=== PATIENT | female | born 1995 | race Two or more races ===

== ENCOUNTER 2018-05-13 08:30 | Emergency (ER) | payer OTHER, MEDICAID ==
[~2018-05-13] VITALS: Ht 160 cm; Wt 54.9 kg
--- NOTE | 2018-05-13 08:45 | NUR ---
BIB [facility]- WAS FOUND IN [place] WITH SHEET WRAPPED AROUND NECK. ALSO REPORTS PLANS OF DROWNING HERSELF IN THE [place], AND TAKING MULTIPLE XANAX. NOTED WITH FLAT AFFECT. MD AT BS FOR EVAL. [place] [facility] AND REPORTS THAT PT IS IN THE MIDDLE OF AN ARREST AND THEY HAVE PT'S VALUABLES THAT THEY ARE TAKING IN UNDER THEIR CUSTODY- NOTED LIGHT BLUE HAND BAG/PURSE WITH MULTIPLE MARION INSIDE. VSS. PLACED ON RESTRAINTS PER MD ORDER. SUICIDE PRECAUTIONS IMPLEMENTED. SAFETY AND COMFORT MEASURES PROVIDED. WILL MONITOR.
[2018-05-13 09:06] LABS: BASOPHILS % (AUTO) 0.6 % (0.0-2.0); EOSINOPHILS % (AUTO) 0.7 % (0.0-6.0); HEMATOCRIT 42 % (33-45); HEMOGLOBIN 13.3 g/dL (11.5-14.8); LYMPHOCYTES # (AUTO) 1.4 /CMM (0.8-4.8); LYMPHOCYTES % (AUTO) 27.8 % (20.0-44.0); MEAN CORPUSCULAR HGB CONC 32 g/dl (31.0-36.0); MEAN CORPUSCULAR VOLUME 95 fL (82-100); MONOCYTES # (AUTO) 0.5 /CMM (0.1-1.30); NEUTROPHILS % (AUTO) 60.9 % (43.0-81.0); PLATELET COUNT (AUTO) 324 /CMM (150-450); RDW COEFFICIENT OF VARIATION 14.5 (11.5-15.0); RED BLOOD CELL COUNT(AUTO) 4.39 MIL/uL (4.0-5.2); WHITE BLOOD COUNT (AUTO) 4.9 K/uL (4.3-11.0)
--- NOTE | 2018-05-13 09:08 | NUR ---
SPENCER OFFICER INFO: YAMILET [id number] STAFFERD [id number] STATION NUMBER-
[2018-05-13 09:15] LABS: CALCIUM, SERUM 8.4 mg/dL (8.5-10.1); CREATININE 0.8 mg/dL (0.6-1.3); POTASSIUM 3.7 mmol/L (3.5-5.1)
--- NOTE | 2018-05-13 09:20 | NUR ---
PT NOTED CRYING STATING THAT -S[place] WANTS TO [place] AND [place]SELF. NOTED TRYING TO BUMP HER HEAD ON THE BED RAILS. MD AWARE. WITH NEW ORDERS FOR MEDS. PT REFUSES TO DRINK AND EAT, REFUSES TO PROVIDE URINE SAMPLE.
[2018-05-13 09:21] LABS: ALBUMIN 4.2 g/dL (3.4-5.0); BILIRUBIN,DIRECT 0.1 mg/dL (0.0-0.2); BILIRUBIN,TOTAL 0.6 mg/dL (0.2-1.0); SALICYLATE 2.1 mg/dL (2.8-20.0); TOTAL PROTEIN, SERUM 7.3 g/dL (6.4-8.2)
--- NOTE | 2018-05-13 09:25 | NUR ---
CALLED [facility] [employer] [facility] FOR A SITTER.
[2018-05-13] MEDS ORDERED: ALPRAZOLAM 0.5 MG TABLET ONE (09:30)
[2018-05-13] MEDS ORDERED: ALPRAZOLAM 0.5 MG TABLET PO ONE (09:30)
--- NOTE | 2018-05-13 10:30 | NUR ---
IRIS THOMAS AT FOR EVAL.
--- NOTE | 2018-05-13 11:06 | NUR ---
SPENCER AT BS.
--- NOTE | 2018-05-13 11:35 | NUR ---
IRIS THOMAS AT FOR RE-EVAL.
[2018-05-13 11:43] LABS: APPEARANCE,URINE Clear (CLEAR); BILIRUBIN,URINE Negative (NEGATIVE); BLOOD, URINE Trace-intact Ery/uL (NEGATIVE); COLOR,URINE Yellow (YELLOW); KETONES,URINE Negative (NEGATIVE); LEUKOCYTE ESTERASE ,URINE Negative (NEGATIVE); NITRITE, URINE Negative (NEGATIVE); PROTEIN,URINE Trace mg/dl (NEGATIVE); UGLUCOSE 500 MG/DL mg/dL (NEGATIVE); UROBILINOGEN,URINE 0.2 EU/dL (0.2)
[2018-05-13] MEDS ORDERED: ACETAMINOPHEN ES 500 MG TABLET ONE (11:59)
[2018-05-13] MEDS ORDERED: ACETAMINOPHEN 325 MG TABLET PO ONE (12:00)
[2018-05-13] MEDS ORDERED: ACETAMINOPHEN 325 MG TABLET ONE (12:03)
[2018-05-13 12:05] LABS: BACTERIA,URINE Rare /HPF (None Seen); SQUAMOUS EPITHELIAL CELL,UR Few /HPF (None Seen); WBC,URINE NONE SEEN /HPF (0-3)
--- NOTE | 2018-05-13 14:45 | NUR ---
PT [id number]. IRIS THOMAS AT . OFFERED FOOD AND DRINKS.
--- NOTE | 2018-05-13 15:13 | NUR ---
Patient discharged to home in stable condition. Written and verbal after care instructions given. Patient verbalizes understanding of instruction. Pt ambulates with a steady gait.
[2018-05-13 15:14] VITALS: BP 121/77
== END 2018-05-13 15:15 | disposition home or self-care (01) ==
LOC: ER 08:32
DX: R45.851 Suicidal ideations (principal); F32.9 Major depressive disorder, single episode, unspecified; F10.129 Alcohol abuse with intoxication, unspecified; J45.909 Unspecified asthma, uncomplicated; Y90.9 Presence of alcohol in blood, level not specified
CPT/HCPCS: 36415; 80048; 80076; 80305; 80329; 81001; 84703; 85025; 99285; G0480 ×2; 81000-TC; Z7610